=== PATIENT | female | born 1965 | race Caucasian/White ===

== ENCOUNTER 2020-12-07 05:35 | Emergency (ER) | payer MEDICARE ==
[~2020-12-07 05:35] MED LIST: BACTRIM DS TAB1 EACH PO
[2020-12-07 06:15] LABS: BASOPHIL 0.2 % (0-2); EOSINOPHIL 0.2 % (0-5); LYMPHOCYTE 16.8 % (15-48); MCH 29.5 pg (25.0-31.0); MCHC 33.3 g/dL (32.0-36.0); MCV 88.6 fL (78.0-100.0); MPV 10.3 fL (6.0-9.5); NEUTROPHIL 70.3 % (41-80); NRBC 0; PLT 237 K/uL (150-400); RBC 4.74 M/uL (4.20-5.40); RDW 12.8 % (11.5-14.0); WBC 5.9 K/uL (4.0-10.5)
[2020-12-07 06:31] LABS: ALBUMIN 2.8 g/dL (3.4-5.0); BILIRUBIN - TOTAL 0.3 mg/dL (0.2-1.0); CREATININE 0.68 mg/dL (0.51-0.95); GLOBULIN (CALCULATION) 4.8 g/dL; POTASSIUM 4.3 mmol/L (3.5-5.1); TOTAL PROTEIN 7.6 g/dL (6.4-8.2)
[2020-12-07 06:36] LABS: LACTIC ACID 1.6 mmol/L (0.4-1.9)
[2020-12-07 08:45] LABS: BILIRUBIN NEGATIVE (NEGATIVE); BLOOD NEGATIVE Ery/uL (NEGATIVE); CLARITY CLEAR (CLEAR); COLOR YELLOW (YELLOW); GLUCOSE (U) NORMAL (NORMAL); LEUKOCYTES NEGATIVE Leu/uL (NEGATIVE); NITRITE NEGATIVE (NEGATIVE); PROTEIN NEGATIVE (NEGATIVE); SPECIFIC GRAVITY <=1.005 (1.001-1.030); pH 6.5 (5.0-9.0)
[2020-12-07 10:36] LABS: BILIRUBIN NEGATIVE (NEGATIVE); BLOOD NEGATIVE Ery/uL (NEGATIVE); CLARITY CLEAR (CLEAR); COLOR YELLOW (YELLOW); GLUCOSE (U) NORMAL (NORMAL); LEUKOCYTES NEGATIVE Leu/uL (NEGATIVE); NITRITE NEGATIVE (NEGATIVE); PROTEIN NEGATIVE (NEGATIVE); SPECIFIC GRAVITY 1.015 (1.001-1.030); pH 5.5 (5.0-9.0)
== END 2020-12-07 14:18 | disposition other institution (70) ==
LOC: FER 05:35
PROVIDERS: Emergency Medicine; Internal Medicine
DX: U07.1 COVID-19 (principal); J96.01 Acute respiratory failure with hypoxia; J12.82 Pneumonia due to coronavirus disease 2019
CPT/HCPCS: 36415; 36600; 71275; 80053; 81003; 82803; 83605; 83690; 84484; 85025; 87040; 93005; C9399; J0456; J2405; J2543; J2930; J3370; J7030; J7050; Q9967; U0002